=== PATIENT | female | born 1975 | race Caucasian/White ===

== ENCOUNTER 2021-08-01 06:44 | Emergency (ER) | payer MEDICAID ==
[2021-08-01] MEDS ORDERED: Sodium Chloride 0.9% 10 ML Syringe FLUSH PRN (06:58)
[2021-08-01] MEDS ORDERED: Tenecteplase 50 MG Kit IV ONE (06:59)
[2021-08-01] MEDS ORDERED: Heparin Sodium 5,000 Units/ML Vial IVPUSH ONE (07:00)
[2021-08-01] MEDS ORDERED: Nitroglycerin/D5W 25 MG/250 ML BOTTLE IV SCH (07:00)
[2021-08-01] MEDS ORDERED: Heparin Sodium/D5W 25,000 UNITS/500 ML BAG IV SCH (07:00)
== END 2021-08-01 08:34 ==
LOC: JD.ED 06:44
DX: I21.02 ST elevation (STEMI) myocardial infarction involving left anterior descending coronary artery (principal); Z88.5 Allergy status to narcotic agent
CPT/HCPCS: 36415; 71045; 80053; 84484; 85025; 85730; 92977; 93005; 96365; 96368; 96376; 99285; J1644; J3101; J3490; 93010

== ENCOUNTER 2025-01-07 08:37 | Emergency (ER) | payer MEDICAID ==
[2025-01-07] MEDS ORDERED: Iopamidol 612 MG/ML 30 ML SDV IVPUSH ONE (09:46)
[2025-01-07] MEDS ORDERED: Sodium Chloride 0.9% 10 ML Syringe IARTIC ONE (09:46)
[2025-01-07 10:19] LABS: APPEARANCE,URINE CLEAR (Clear); GLUCOSE,URINE NEGATIVE (Negative); OCCULT BLOOD,URINE NEGATIVE (Negative)
[2025-01-07 10:19] LABS: BASOPHILS ABSOLUTE AUTO 0.1 K/mm3 (0.0-0.2); BASOPHILS PERCENT AUTO 0.9 % (0.0-1.0); EOSINOPHILS ABSOLUTE AUTO 0.2 K/mm3 (0.0-0.4); EOSINOPHILS PERCENT AUTO 2.9 % (0.0-6.0); IMMATURE GRAN ABSOLUTE AUTO 0.01 K/mm3 (0.00-0.05); IMMATURE GRAN PERCENT AUTO 0.2 % (0.0-0.4); LYMPHOCYTES ABSOLUTE AUTO 1.5 K/mm3 (1.0-4.8); LYMPHOCYTES PERCENT AUTO 26.5 % (24.0-44.0); MEAN PLATELET VOLUME 9.2 fl (9.4-12.3); MONOCYTES ABSOLUTE AUTO 0.4 K/mm3 (0.0-0.8); MONOCYTES PERCENT AUTO 7.7 % (0.0-8.0); NEUTROPHILS ABSOLUTE AUTO 3.4 K/mm3 (1.8-7.7); NEUTROPHILS PERCENT AUTO 61.8 % (41.0-71.0); NRBC ABSOLUTE 0.00 (0.00-0.02); NRBC PERCENT 0.0 % (0.0-0.2); PLATELET COUNT,PLT 212 K/mm3 (150-400); RED BLOOD CELL COUNT 4.67 M/mm3 (4.10-5.30); WHITE BLOOD CELL COUNT,WBC 5.48 K/mm3 (3.9-11.3)
[2025-01-07] MEDS: Sodium Chloride 0.9% 10 ML Syringe FLUSH PRN (10:22)
[2025-01-07] MEDS: Iopamidol 755 Mg/ML 100 ML Bottle IVPUSH ONE (10:23)
[2025-01-07 10:45] LABS: A/G RATIO 1.0 (1-2); ALANINE AMINOTRANSFERASE,ALT 33.0 U/L (14-59); ASPARTATE AMNIOTRANSFERASE,AST 18.0 U/L (15-37); BILIRUBIN TOTAL 0.3 mg/dL (0.2-1.0); BLOOD UREA NITROGEN,BUN 15.0 mg/dL (7-18); CARBON DIOXIDE,CO2 28.0 mEq/L (21-32); CHLORIDE,CL 103.0 mEq/L (98-107); CREATININE 1.1 mg/dL (0.55-1.02); EST CRCL DRUG DOSING (CG) 52.25 mL/min; ESTIMATED GFR 61.0 mL/min (>60); GLUCOSE RANDOM 115.0 mg/dL (70-99); POTASSIUM,K 4.1 mEq/L (3.5-5.1); PROTEIN TOTAL,TP 7.1 g/dl (6.4-8.2); SODIUM,NA 141.0 mEq/L (136-145)
== END 2025-01-07 12:05 | disposition home or self-care (01) ==
LOC: JD.ED 08:37
DX: R10.9 Unspecified abdominal pain (principal); I10 Essential (primary) hypertension; F17.200 Nicotine dependence, unspecified, uncomplicated; Z88.8 Allergy status to other drugs, medicaments and biological substances; Z90.49 Acquired absence of other specified parts of digestive tract
CPT/HCPCS: 36415; 74177; 80053; 81003; 83690; 84703; 85025; 96360; 99284; J7030; Q9967; 99283

== ENCOUNTER 2025-02-10 08:19 | Day surgery (SDC) | payer MEDICAID ==
[~2025-02-10 08:19] MED LIST: Sodium Chloride 0.9% 10 ML Syringe FLUSH PRN; Sodium Chloride 0.9% 10 ML Syringe FLUSH SCH
[2025-02-10] MEDS: Lactated Ringers 1,000 ML IV SCH (08:45)
[2025-02-10] MEDS ORDERED: propofoL 500 MG/50 ML 50 ML ONE (10:17)
== END 2025-02-10 11:30 | disposition home or self-care (01) ==
LOC: JD.SDS 08:19
PROVIDERS: ATTEND Surgery
DX: Z12.11 Encounter for screening for malignant neoplasm of colon (principal); K29.50 Unspecified chronic gastritis without bleeding; K22.89 Other specified disease of esophagus; K21.00 Gastro-esophageal reflux disease with esophagitis, without bleeding; K22.70 Barrett's esophagus without dysplasia; K44.9 Diaphragmatic hernia without obstruction or gangrene; I10 Essential (primary) hypertension; F17.210 Nicotine dependence, cigarettes, uncomplicated; Z88.5 Allergy status to narcotic agent; Z80.0 Family history of malignant neoplasm of digestive organs; Z88.8 Allergy status to other drugs, medicaments and biological substances; Z79.899 Other long term (current) drug therapy
CPT/HCPCS: 43239; 45378; C9777; J2704; J7120; 00813

== ENCOUNTER 2025-03-24 08:44 | Observation (INO) | payer MEDICAID ==
[~2025-03-24 08:44] MED LIST changes: -Sodium Chloride 0.9% 10 ML Syringe FLUSH SCH
[2025-03-24] MEDS: Lactated Ringers 1,000 ML IV SCH ×2 (09:00→13:52)
[2025-03-24] MEDS ORDERED: propofoL 1,000 MG/100 ML 100 ML ONE (09:24)
[2025-03-24] MEDS ORDERED: fentaNYL 250 MCG/5 ML SDV ONE (09:25)
[2025-03-24] MEDS ORDERED: Ketamine HCL/NACL, ISO-OSM 50 MG/5 ML Syringe ONE (09:25)
[2025-03-24] MEDS ORDERED: propofoL 500 MG/50 ML 50 ML ONE (09:25)
[2025-03-24] MEDS ORDERED: Midazolam 1 MG/ML 2 ML SDV ONE (09:25)
[2025-03-24] MEDS ORDERED: HYDROmorphone 2 MG/ML SDV ONE (09:26)
[2025-03-24] MEDS ORDERED: dexmedeTOMIDine HCl 200 MCG/2 ML SDV ONE (09:29)
[2025-03-24] MEDS ORDERED: Ondansetron 4 MG/2 ML SDV ONE (09:29)
[2025-03-24] MEDS ORDERED: Phenylephrine 1% 10 MG/ML SDV ONE (10:30)
[2025-03-24] MEDS: EPINEPHrine 1 MG/ML SDV ONE (10:40)
[2025-03-24] MEDS ORDERED: fentaNYL 100 MCG/2 ML SDV IVPUSH PRN (11:02)
[2025-03-24] MEDS ORDERED: droPERidol 2.5 MG/ML SDV IV PRN (11:02)
[2025-03-24] MEDS ORDERED: Ondansetron 4 MG/2 ML SDV IVPUSH PRN (11:02)
[2025-03-24] MEDS ORDERED: Lactated Ringers 1,000 ML ONE (11:07)
[2025-03-24] MEDS ORDERED: Ketorolac 30 MG/ML SDV ONE (11:44)
[2025-03-24] MEDS ORDERED: Ondansetron 4 MG/2 ML SDV IV PRN (11:49)
[2025-03-24] MEDS ORDERED: Benzocaine/Cetylpyridinium/Menthol Lozenge MUCMEM PRN (11:54)
[2025-03-24] MEDS ORDERED: Budesonide 0.25 MG/2 ML Neb Susp INH PRN (11:54)
[2025-03-24] MEDS: Sodium Chloride 0.9% 10 ML Syringe FLUSH SCH (13:23)
[2025-03-24] MEDS: diphenhydrAMINE 50 MG/ML SDV IVPUSH PRN (20:08)
[2025-03-25 07:44] LABS: MEAN PLATELET VOLUME 9.3 fl (9.4-12.3); NRBC ABSOLUTE 0.00 (0.00-0.02); NRBC PERCENT 0.0 % (0.0-0.2); PLATELET COUNT,PLT 196 K/mm3 (150-400); RED BLOOD CELL COUNT 4.38 M/mm3 (4.10-5.30); WHITE BLOOD CELL COUNT,WBC 7.48 K/mm3 (3.9-11.3)
[2025-03-25 08:04] LABS: BLOOD UREA NITROGEN,BUN 12.0 mg/dL (7-18); CARBON DIOXIDE,CO2 27.0 mEq/L (21-32); CHLORIDE,CL 107.0 mEq/L (98-107); CREATININE 1.0 mg/dL (0.55-1.02); EST CRCL DRUG DOSING (CG) 47.81 mL/min; ESTIMATED GFR 68.0 mL/min (>60); GLUCOSE RANDOM 104.0 mg/dL (70-99); POTASSIUM,K 4.5 mEq/L (3.5-5.1); SODIUM,NA 142.0 mEq/L (136-145)
[2025-03-25] MEDS: Ketorolac 15 MG/ML SDV IVPUSH SCH (08:24)
[2025-03-25] MEDS: Fluticasone NASAL Spray 16 GM Bottle NASBOTH SCH (08:33)
== END 2025-03-25 15:45 | disposition home or self-care (01) ==
LOC: INTOOBSV 08:44 → JD.MS 08:44
PROVIDERS: ADMIT Surgery; ATTEND Surgery
DX: K44.9 Diaphragmatic hernia without obstruction or gangrene (principal); I10 Essential (primary) hypertension; E78.00 Pure hypercholesterolemia, unspecified; F17.210 Nicotine dependence, cigarettes, uncomplicated; Z88.5 Allergy status to narcotic agent; Z88.8 Allergy status to other drugs, medicaments and biological substances; Z79.899 Other long term (current) drug therapy
CPT/HCPCS: 36415; 43280; 80048; 85027; 94760; 94761; A9270; J0169; J0665; J0690; J1171; J1200; J1885; J2003; J2250; J2371; J2405; J2704; J3010; J7120; J7620; Q0169; 00750; J3490